=== PATIENT | female | born 1975 | race Caucasian/White ===

== ENCOUNTER → 2021-05-06 13:47 | Outpatient (CLI) | payer OTHER, SELFPAY ==
--- NOTE | 2021-05-06 13:52 | DI.RAD.S_ITS ---
PROCEDURE: XR TOE RT MIN 2V INDICATIONS: smashed Great toe TECHNIQUE: 3 views of the right 1st toe(s) acquired. COMPARISON: None. FINDINGS: Bones: No fractures or dislocations. No suspicious bony lesions. Soft tissues: No suspicious soft tissue densities. IMPRESSION: No acute fracture. No osseous lesion. If symptoms and/or clinical suspicion for pathology persist, further assessment with repeat, or advanced imaging (e.g., CT, MRI, or bone scan) may be helpful for further assessment. Dictated by: Rafeal Todd M.D. on 05/06/2021 at 13:14 Approved by: Rafael Todd M.D. on 05/06/2021 at 13:14
== END ==
PROVIDERS: Referring Provider Student in an Organized Health Care Education/Training Program; Visit Provider Student in an Organized Health Care Education/Training Program
DX: S97.111A Crushing injury of right great toe, initial encounter (principal); X58.XXXA Exposure to other specified factors, initial encounter
CPT/HCPCS: 73660